=== PATIENT | female | born 2005 | race Caucasian/White ===

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

== ENCOUNTER 2025-02-15 19:38 | Emergency (ER) | payer BC, SELFPAY ==
--- OUTSIDE RECORDS SUMMARY | 2025-02-15 19:40 | XMS_ITS | Clinical Summary ---
Author Organization [facility] Address [address] [place] [address] Care Team Providers Care Recycler Forklift Driver Truck Driver Name Role Phone Clinician, Not Found MD Primary Care Provider Un available Source Comments You are receiving this document as you are listed as the primary care provider,follow-up provider, or the patient has been referred to you for consultation.This is in compliance with the Medicare and[facility] EHR Incentive Program,which states Providers who transition their patient to another setting of careor provider of care or refers their patient to another provider of care shouldprovide summary care record for each transition of care or referral. [facility] Allergies Active Allergy Reactions Criticality Noted Date Comments Latex Rash 08/27/2022 Sulfa Antibiotics Rash High 06/14/2024 Body rash Medications ALBUterol sulfate HFA 108 (90 Base) MCG/ACT inhaler Inhale 1-2 Puffs every 4 hours as needed. 05/28/19 25 Active cloNIDine (CATAPRES) 0.1 MG tablet Take 1 Tablet (0.1 mg) by mouth daily at bedtime. Active topiramate (TOPAMAX) 25 MG tablet Take 1 Tablet (25 mg) by mouth daily at bedtime. 06/28/19 25 Active VRAYLAR 1.5 MG capsule Take 1 Capsule (1.5 mg) by mouth daily at bedtime. 06/28/19 25 Active cholecalcifero l 25 MCG TABS Take 2 Tablets (2,000 Units) by mouth daily. 06/29/19 25 Active multivitamin (THERAGRAN) tablet Take 1 Tablet by mouth daily. 06/29/19 25 Active medroxyPROGEST ERone 150 MG/ML injection Inject 150 mg intramuscularly every 3 months. 02/17/20 24 025 Active Problems Problem Noted Date Diagnosed Date Vitamin D insufficiency 06/29/2024 Social anxiety disorder 06/21/2024 MDD (major depressive disord er), recurrent episode, moderate 06/21/2024 PTSD (post-traumatic stress disorder) 06/21/2024 Cannabis use disorder, moderate, dependence 05/25 Anorexia nervosa, binge-eating purging type, sev ere 06/14/2024 Abnormal weight loss 06/14/2024 Underweight 06/14/2024 Malnutrition 06/14/2024 BETH (generalized anxiety disorder) 06/14/2024 Immunizations Immunization Administration Dates Next Due Pfizer Bivalent 12+ 02/26/2022 Pfizer Monovalent 12+ 09/04/2021 Pfizer Monovalent 12+ Purple Top 10/28/2020,09/20 Social History Tobacco Use Types Packs/Day Years Used Date Smoking Tobacco: Former Cigarettes Smokeless Tobacco: Never Tobacco Cessation:Counseling Given: Not Answered Alcohol Use Standard Drinks/Week Comments Yes 0 (1 standard drink = 0.6 oz pur e alcohol) rare [facility] Utilities Answer Date Recorded In the past 12 months has [facility] [employer], gas, oil, or water [employer] threatened to shut off services in your home? Patient declined 06/28/2024 Humiliation, Afraid, Rape, and Kick questionnair e Answer Date Recorded Within the last year, have y ou been afraid of your partner or ex-partner? Patient declined 06/28/2024 Within the last year, have y ou been humiliated or emotionally abused in other ways by your partner or ex-partner? Patient declined 06/28/2024 Within the last year, have y ou been kicked, hit, slapped, or otherwise physically hurt by your partner or ex-partner? Patient declined 06/28/2024 Within the last year, have y ou been raped or forced to have any kind of sexual activity by your partner or ex-partner? Patient declined 06/28/2024 Hunger Vital Sign Answer Date Recorded Within the past 12 months, y ou worried that your food would run out before you got the money to buy more. Patient declined Within the past 12 months, t he food you bought just didn't last and you didn't have money to get more. Patient declined 10/2024 PRAPARE - Transportation Answer Date Re corded In the past 12 months, has l ack of transportation kept you from medical appointments or from getting medications? Patient declined 06/28/2024 In the past 12 months, has l ack of transportation kept you from meetings, work, or from getting things needed for daily living? Patient declined 06/28/2024 Comments No Sex and Gender Information Value Date Recorded Sex Assigned at Not on file Legal Sex Female 4:35 PM CDT Gender Identity Not on file Sexual Orientation Not on file Last Filed Vital Signs Vital Sign Reading Time Taken Comments Blood Pressure 112/81 06/29/2024 6:03 AM CLAY CARMAN Pulse 98 06/29/2024 6:03 AM CLAY CARMAN Temperature 37.1 C (98.8 F) 06/29/2024 6:00 AM CLAY CARMAN Respiratory Rate - - Oxygen Saturation - - Inhaled Oxygen Concentration - - Weight 43 kg (94 lb 12.8 oz) 06/28/2024 2:17 PM CLAY CARMAN Height 155.2 cm (5' 1.1) 06/28/2024 2:17 PM CLAY CARMAN Body Mass Index 17.85 06/28/2024 2:17 PM CLAY CARMAN Plan of Treatment Health Maintenance Due Date Last Done Comments Hep C Screening (Preventive Services) 2005 MenB Immunization Discussion 2005 HIV Screening (Preventive Services) 2021 Adult Preventive Visit 2023 Chlamydia 08/28/2023 08/27/2022, 08/27/2022 HepB Vaccine (1) 2024 COVID-19 Vaccine (5 - 2024-2 6 season) 2025 02/26/2022, 09/04/2021, 10/28/2020, Additional history exists Influenza Vaccine (#1) 2025 9, 02/08/2018, 03/25/2011, Additional history exists DTaP/Tdap/Td Vaccine (8 - Tdap) 11/01/2033 11/02/2023, 05/28/2015, 04/24/2009, Additional history exists Zoster/Shingles Vaccine (1 of 2) 2055 Pneumococcal Vaccine Completed 04/25/2006, 2005, 2005, Additional history exists Hib Vaccine Completed 08/24/2006, 06/2005, 2005, Additional history exists HepA Vaccine Completed 04/24/2009, 01/09/2007 IPV (Polio) Vaccine Completed 04/29/2010, 01/09/2007, 2005, Additional history exists MCV4 Vaccine Completed 02/26/2022, 05/28/2015 HPV Vaccine Completed 11/29/2022, 08/2017, 09/14/2016, Additional history exists HGB Completed 06/28/2024, 06/14/2024 Procedures Procedure Name Priority Date/Time Associated Diagnosis Comments COMPLETE BLOOD COUNT-W/DIFF STAT 06/28/2024 2:07 PM CLAY CARMAN Anorexia nervosa, binge-eating purging type, severe from Last 3 Months or Most Recently Relevant to Health Maintenance Results * Complete Blood Count-W/Diff (06/28/2024 2:07 PM CLAY CARMAN) Pathologist [facility] WBC 7.4 3.5 - 10.5 x10(9)/L 06/28/2024 6:41 PM CLAY CARMAN [facility] RBC 4.75 3.90 - 5.03 x10(12)/L 06/28/2024 6:41 PM CLAY CARMAN [facility] Hemoglobin 14.8 12.0 - 15.5 g/dL 06/28/2024 6:41 PM CLAY CARMAN [facility] HCT 43.8 34.9 - 44.5 % 06/28/2024 6:41 PM CLAY CARMAN [facility] MCV 92.2 80.0 - 100.0 fL 06/28/2024 6:41 PM CLAY CARMAN [facility] MCH 31.2 27.6 - 33.3 pg 06/28/2024 6:41 PM CLAY CARMAN [facility] MCHC 33.8 31.5 - 35.2 g/dL 06/28/2024 6:41 PM CLAY CARMAN [facility] RDW 13.2 11.9 - 15.5 % 06/28/2024 6:41 PM CLAY CARMAN [facility] Platelets 407 150 - 450 x10(9)/L 06/28/2024 6:41 PM CLAY CARMAN [facility] Automated NRBC 0 <=0 /100 WBC 06/28/2024 6:41 PM CLAY CARMAN [facility] Neutrophil Absolute 4.0 1.7 - 7.0 10(9)/L 06/28/2024 6:41 PM CLAY CARMAN [facility] Lymphocyte Absolute 2.6 1.0 - 4.8 10(9)/L 06/28/2024 6:41 PM CLAY CARMAN [facility] Monocyte Absolute 0.6 0.2 - 0.9 10(9)/L 06/28/2024 6:41 PM CLAY CARMAN [facility] Eosinophil Absolute 0.1 0.0 - 0.5 10(9)/L 06/28/2024 6:41 PM CLAY CARMAN [facility] Basophil Absolute 0.0 0.0 - 0.3 10(9)/L 06/28/2024 6:41 PM CLAY CARMAN [facility] Immature Granulocyte % 0.3 0.0 - 0.5 % 06/28/2024 6:41 PM CLAY CARMAN [facility] Blood Venipuncture / Unknown 06/28/2024 2:07 PM CLAY CARMAN 06/28/2024 3:33 PM CLAY CARMAN Nusrat Jarrett PA-C LAB_1 Final Result [facility] [address] [place] [address], [facility] from Last 3 Months or Most Recently Relevant to Health Maintenance Insurance [facility] [place] [phone] Advance Directives * Full Code (Latest Code Status on File) Date Activated Date Inactivated Comments 06/28/2024 3:38 PM 06/29/2024 3:25 PM Care Teams Recycler Forklift Driver Truck Driver Relationship Specialty Start Date End Date Clinician, Not Found, [place] [address] PCP - General 06/14/24
--- OUTSIDE RECORDS SUMMARY | 2025-02-15 19:40 | XMS_ITS | Clinical Summary ---
Author Organization [facility] Address [address] [place] [address] Care Team Providers Care Turret Punch Press Operator Name Role Phone Lisa Srinivasan MD Primary Care Prov ider Allergies Active Allergy Reactions Criticality Noted Date Comments Sulfamethoxazole-Trimethop rim Rash Medium 03/04/2018 Latex Rash 08/27/2022 Onion *Unknown High 08/12/2022 Sulfa (Sulfonamide Antibiotics) Rash High 03/15/2019 Jose Alberto daisha syndrome Medications albuterol HFA (PRO-AIR; VENTOLIN; PROVENTIL) 90 mcg/actuation inhalerIndication s:Breathing difficulty Inhale 1-2 Puffs by mouth every 4 hours if needed for Shortness of Breath 1st choice or Wheezing 2nd choice. 36 g 05/28/19 25 Active Vraylar 1.5 mg capsule Take 1.5 mg by mouth once daily. Active diazePAM 10 mg tablet TAKE 1 TABLET BY MOUTH DAILY NEEDED FOR SEVERE AGITATION 07/10/19 25 Active doxazosin (CARDURA) 1 mg tablet Take 1 mg by mouth at bedtime. 01/10/20 25 Active naproxen (NAPROSYN) 500 mg tabletIndications :IUD contraception Take 1 Tablet (500 mg) by mouth two times daily. 14 Tablet 01/26/20 25 Active Additional Information Patient not taking.Reported on 02/07/2025 lidocaine (XYLOCAINE) 2 % gelIndications:IU D contraception Apply topically to affected area(s) one time if needed (vaginal) for up to 1 dose. 5 mL 01/26/20 25 025 Discontin ued(*Med complete/ Regimen complete/ Level of care change) Hospital, Clinic, or Other Facility Administered Medication Ordered Dose Route Frequency Start Date End Date Status levonorgestrel (KYLEENA) 17.5 mcg/24 hr (5 yrs) 19.5 mg intrauterine device (IUD) 1 DeviceIndications:E ncounter for IUD insertion 1 Device IU Q 5 YEARS 02/05/2025 Active medroxyPROGESTERone acetate (contraceptive) (DEPO-PROVERA) injection 150 mgIndications:Uses contraception 150 mg IM Q 3 MONTHS (12 WEEKS) 12/13/2024 Discontinued Active Problems Problem Noted Date Diagnosed Date Drug overdose 12/12/2024 Vitamin D insufficiency 06/29/2024 Cannabis use disorder, moderate, dependence 05/25 Social anxiety disorder 06/21/2024 Abnormal weight loss 06/14/2024 Anorexia nervosa, binge-eating purging type, sev ere 06/14/2024 Asthma, unspecified asthma s everity, unspecified whether complicated, unspecified whether persistent 10/27/2023 History of asthma 02/10/2023 PTSD (post-traumatic stress disorder) 11/29/2022 Depression, major, single episode, moderate 11/20 Insomnia, idiopathic 11/29/2022 Migraine with aura and witho ut status migrainosus, not intractable 11/29/2022 Overview (11/29/2022): Aura, Uses Imitrex. Severe episode of recurrent major depressive disorder, without psychotic features 09/04/2021 Anxiety 09/04/2021 Attention deficit hyperactiv ity disorder (ADHD), predominantly inattentive type 02/02/2018 Resolved Problems Problem Noted Date Diagnosed Date Resolved Date Costal chondritis 10/01/2021 02/26/2022 Atypical pneumonia 10/01/2021 2 Encounters Date Type Department Care Team Description 02/11/2025 Nurse Triage [facility] [address] [place] [address] Lisa Srinivasan MD Abdominal Pain (Post IUD insertion) 02/07/2025 9:00 AM CDT Office Visit [facility] [address] [facility] [place] [address] Isi Freeman MD Abdominal Pain 02/07/2025 Travel 02/05/2025 7:45 AM CDT Procedure Only [facility] [address] [place] [address] Lsia Srinivasan MD IUD (IUD insertion ) 02/05/2025 Travel 01/30/2025 Telephone [facility] [address] [place] [address] Lisa Srinivasan MD Prior Authorization (lidocaine (XYLOCAINE) 2 % gel (Lidocaine HCl Urethral/Mucosal 2% syringes) Denied) 01/25/2025 1:25 PM CDT Office Visit [facility] [address] [place] [address] Lisa Srinivasan MD Medication Management ( control - Was on Depo, would like discuss IUD ) 01/25/2025 Travel 12/12/2024 8:35 AM CDT Office Visit [facility] [address] [place] [address] Lisa Srinivasan MD Well Child (19 year old ) 12/12/2024 Travel from Last 3 Months Immunizations Immunization Administration Dates Next Due AMB Influenza, IIV4 PF (=>6 mos Flulaval,Fluzone Fluarix)(Flu Clinic Only) 04/03/2019 COVID-19 vaccine (Pfizer-Bio NTech 30mcg/0.3mL) 12YO+ BIVALENT PF, MDV 02/26/2022 COVID-19 vaccine (Pfizer-Bio NTech 30mcg/0.3mL) 12YO+ JAMAL-SUCROSE PF, MDV 09/04/2021 COVID-19 vaccine (Pfizer-Bio NTech 30mcg/0.3mL) PF, MDV 10/28/2020,10/07/2020 DTaP 04/24/2009, 7,2005,08/24,2005 HPV 9 (Gardasil 9) 11/29/2022, 8,09/14/2016,05/12 Hepatitis A (Peds) 04/24/2009,01/09/2007 Hepatitis B (Peds) 02/18/2006,2005, 005 Hib Conjugate, Unspecified 08/24/2006,,2005,06/25 Inactivated Polio Vaccine 04/29/2010,,2005,06/25 Influenza, IIV4 02/08/2018, 1,03/02/2010,03/04,04/07/2007,04/25/2006,02/18/2006 MENINGOCOCCAL VACCINE 2 VIAL 2MO-55YO (MENVEO) 02/26/2022 MMR 04/24/2009,08/24/2006 Meningococcal Vaccine (Menactra) 05/28/2015 Pneumococcal conj 13-Valent (Prevnar 13) 04/25/2006,2005,2005,06/25 Tdap 11/02/2023,05/28/2015 Varicella Vaccine 04/29/2010,08/24/2006 Family History Medical History Relation Name Comments Brain Aneurysm Maternal Grandmother Arthritis Mother Depression Mother Lung cancer Paternal Grandmother smoker Anxiety disorder Sister Autism spectrum disorder Sister Depression Sister Relation Name Status Comments Father Alive Maternal Grandfather Alive Maternal Grandmother Mother Alive Paternal Grandfather Alive Paternal Grandmother Sister Social History Tobacco Use Types Packs/Day Years Used Date Smoking Tobacco: Former Cigarettes Smokeless Tobacco: Never Tobacco Cessation:Counseling Given: Yes Comments:no exposure Alcohol Use Standard Drinks/Week Comments Never 0 (1 standard drink = 0.6 oz pur e alcohol) PHQ-2 Answer Date Recorded PHQ-2 TOTAL SCORE 2 12/12/2024 Social Connections Answer Date Recorded Do you often feel lonely or isolated from those around you? 0 11/06/2024 Financial Resource Strain Answer Date R ecorded Difficulty of Paying Living Expenses 3 11/06/2024 Difficulty of Paying Living Expenses Not on file 11/06/2024 Food Insecurity Answer Date Recorded Do you worry your food will run out before you are able to buy more? 1 11/06/2024 Transportation Needs Answer Date Record ed Does lack of transportation keep you from medica l appointments? 1 11/06/2024 Does lack of transportation keep you from work, meetings or getting things that you need? 1 11/06/2024 Housing Stability Answer Date Recorded What is your housing situation today? 1 11/06/2024 Utilities Answer Date Recorded Do you have trouble paying f or utilities (for example, heat, electricity, water, phone)? 1 11/06/2024 Comments No Sex and Gender Information Value Date Recorded Sex Assigned at Not on file Legal Sex Female 7:17 AM MECHANICAL CAR CHECKER Gender Identity Not on file Sexual Orientation Not on file Obstetrics History Para Term AB IAB SAB Ectopic Multiple Livin g Live Births 0 0 0 0 0 0 0 0 0 0 0 Last Filed Vital Signs Vital Sign Reading Time Taken Comments Blood Pressure 112/65 02/07/2025 9:31 AM CDT Pulse 74 02/07/2025 9:28 AM CDT Temperature 36.7 C (98.1 F) 02/07/2025 9:31 AM CDT Respiratory Rate 18 02/07/2025 9:31 AM CDT Oxygen Saturation 99% 02/07/2025 9:31 AM CDT Inhaled Oxygen Concentration - - Weight 70.8 kg (156 lb) 12/12/2024 8:41 AM CDT Height 154.9 cm (5' 1) 12/12/2024 8:41 AM CDT Body Mass Index 29.48 12/12/2024 8:41 AM CDT Plan of Treatment Health Maintenance Due Date Last Done Comments Hepatitis C screening for ag e 18-79 2023 08/27/2022 COVID-19 vaccine series ( season) 2025 02/26/2022, 09/04/2021, 10/28/2020, Additional history exists Influenza Vaccine (#1) 2025 9, 02/08/2018, 03/25/2011, Additional history exists BMI (ht and wt on same day) for age 18+ 12/12/2025 12/12/2024, 09/06/2024, 03/13/2024, Additional history exists Chlamydia for age 16-24 12/12/2025 12/13/19 25, 08/27/2022, 09/04/2021 Depression screening for age 12+ 12/12/2025 12/12/2024, 12/02/2023, 12/02/2022, Additional history exists Well Child Check for age 3-20 12/12/2025, 12/02/2023, 11/29/2022, Additional history exists Tetanus booster 11/01/2033 11/02/2023, 05/28/2015 RSV vaccine for adults or (1 - 1-dose 75+ series) 2080 Hepatitis B series for 19+ Completed 02/18, 2005, 2005 Pneumococcal series for age 6-49 Completed 04/25/2006, 2005, 2005, Additional history exists Meningococcal series for age 11-21 Completed 2021, 05/28/2015 HIV for age 15-65 Completed 08/27/2022, 09/04/2021 HPV series for age 9-45 Completed 11/30/19, 05/26/2017, 09/14/2016, Additional history exists Procedures Procedure Name Priority Date/Time Associated Diagnosis Comments URINE POCT Routine 02/05/2025 7:54 AM CDT Encounter for IUD insertion TRICHOMONAS, BIANCA, AND BACTERIAL VAGINOSIS BY JUDI Routine 12/12/2024 9:05 AM CDT Screen for STD (sexually transmitted disease) GC CHLAMYDIA TRACH PROBE Routine 12/12/2024 9:05 AM CDT Screen for STD (sexually transmitted disease) LC HIV-1/O/2, 4TH GENERATION Routine 08/27/2022 11:35 AM CDT Routine screening for STI (sexually transmitted infection) LC HCV ANTIBODY RFX TO QUANT PCR Routine 08/27/2022 11:35 AM CDT Routine screening for STI (sexually transmitted infection) from Last 3 Months or Most Recently Relevant to Health Maintenance Results * POCT Urine (02/05/2025 7:54 AM CDT) POC HCG URINE NEGATIVE NEGATIVE 02/05/2025 8:02 AM CDT [facility] Urine URINE SPECIMEN / Unknown Non-Blood / Unknown 02/05/2025 7:54 AM CDT 02/05/2025 7:54 AM CDT Lisa Srinivasan MD URINE Fi nal Result [facility] [address] [address], [place] [phone] [address], [place] [phone] * (ABNORMAL) TRICHOMONAS, BIANCA, AND BACTERIAL VAGINOSIS BY JUDI (12/12/2024 9:05 AM CDT) BIANCA SPECIES Negative Negative 7:41 PM CDT [facility] BIANCA GLABRATA Negative Negative 12/12/2024 7:41 PM CDT [facility] TRICHOMONAS VVA Negative Negative 7:41 PM CDT [facility] BACTERIAL VAGINOSIS Positive(A) Negative 12/12/2024 7:41 PM CDT [facility] Other VAGINAL SWAB / Unknown Non-Blood / Unknown 12/12/2024 9:05 AM CDT 12/12/2024 9:32 AM CDT Lisa Srinivasan MD MICROBIOLOGY Fi nal Result [facility] [address] [place] [address], [place] * GC & CHLAMYDIA DNA PCR [[id number]] (12/12/2024 9:05 AM CDT) CHLAMYDIA PROBE Negative 8:18 PM CDT [facility] N GONORRHOEAE PROBE Negative 12/12/2024 8:18 PM CDT [facility] Other VAGINAL SWAB / Unknown Non-Blood / Unknown 12/12/2024 9:05 AM CDT 12/12/2024 9:32 AM CDT Lisa Srinivasan MD MICROBIOLOGY Fi nal Result [facility] [address] [place] [address], [place] * LC HCV ANTIBODY RFX TO QUANT PCR (08/27/2022 11:35 AM CDT) Pathologist [facility] HCV Ab Non Reactive Non Reactive 08/31/2022 1:09 PM CDT [facility] ([facility]) Blood BLOOD SPECIMEN / Unknown Venipuncture / Unknown 08/27/2022 11:35 AM CDT 08/27/2022 11:37 AM CDT Narrative [facility] ([facility]) - 08/31/2022 1:09 PM CDT Performed at: [address] [place] [id number] Flat Locker: Nawaf Vela MD, Phone: [phone] Lacie Mora MD LABORATORY Fin al Result [facility] ([facility]) [address] [place] [address], [place] * LC HIV-1/O/2, 4TH GENERATION (08/27/2022 11:35 AM CDT) Pathologist [facility] HIV Scr 4th Gen Non Reactive Non Reactive 08/31/2022 12:08 PM CDT [facility] ([facility]) Comment: HIV Negative HIV-1/HIV-2 antibodies and HIV-1 p24 antigen were NOT detected. There is no laboratory evidence of HIV infection. Blood BLOOD SPECIMEN / Unknown Venipuncture / Unknown 08/27/2022 11:35 AM CDT 08/27/2022 11:37 AM CDT Narrative [facility] ([facility]) - 08/31/2022 12:08 PM CDT Performed at: - [facility] [address] [place] [id number] Flat Locker: Nawaf Vela MD, Phone: [phone] us Lacie Mora MD LABORATORY Fin al Result [facility] ([facility]) [facility] [place] [address], from Last 3 Months or Most Recently Relevant to Health Maintenance Insurance [employer] Care Teams Turret Punch Press Operator Relationship Specialty Start Date End Date Lisa Srinivasan MD [address] [place] [address] PCP - General Family Practice 01/25/25
--- OUTSIDE RECORDS SUMMARY | 2025-02-15 19:40 | XMS_ITS | Clinical Summary ---
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 Medications cloNIDine (CATAPRES) 0.1 MG tablet Take 0.1 mg by mouth At Bedtime Active DULoxetine (CYMBALTA) 30 MG capsuleIndications :Recurrent major depressive disorder, remission status unspecified Take 1 capsule (30 mg) by mouth daily 30 capsule 0 Active hydrOXYzine (ATARAX) 25 MG tabletIndications: Anxiety Take 1 tablet (25 mg) by mouth 3 times daily as needed for anxiety 60 tablet 0 Active Vitamin D3 (CHOLECALCIFEROL) 25 mcg (1000 units) tabletIndications: Vitamin D insufficiency Take 2 tablets (50 mcg) by mouth daily 0 Active Active Problems Problem Noted Date Diagnosed Date Suicidal ideation 03/28/2020 Depression Anxiety Social History Tobacco Use Types Packs/Day Years Used Date Smoking Tobacco: Never Assessed Adolescent Education Answer Date Record ed Getting School Help Needed Not on file 02/11 Comments Unknown Sex and Gender Information Value Date Recorded Sex Assigned at Not on file Legal Sex Female 2:37 PM CDT Gender Identity Not on file Sexual Orientation Not on file Last Filed Vital Signs Vital Sign Reading Time Taken Comments Blood Pressure 105/63 04/01/2022 7:03 PM CINETECHNICIAN Pulse 77 04/01/2022 7:03 PM CINETECHNICIAN Temperature 36.1 C (96.9 F) 04/01/2022 7:03 PM CINETECHNICIAN Respiratory Rate 16 04/01/2022 7:03 PM CINETECHNICIAN Oxygen Saturation 100% 04/01/2022 7:03 PM CINETECHNICIAN Inhaled Oxygen Concentration - - Weight 49 kg (108 lb) 04/01/2022 7:03 PM CINETECHNICIAN Height 156.2 cm (5' 1.5) 04/01/2022 7:03 PM CINETECHNICIAN Body Mass Index 20.08 04/01/2022 7:03 PM CINETECHNICIAN Body Mass Index Percentile 39.34% 04/01/2022 7:0 3 PM CINETECHNICIAN Growth Chart: CDC (Girls, 2- 20 Years) Plan of Treatment Health Maintenance Due Date Last Done Comments ADVANCE CARE PLANNING 2005 ANNUAL REVIEW OF HM ORDERS 2005 CHLAMYDIA SCREENING 2005 HPV VACCINE (3 - 2-dose series) 12/07/2016 7, 05/12/2016 HIV SCREENING 2020 MENINGITIS B VACCINE (1 of 2 - Standard) 2021 YEARLY PREVENTIVE VISIT 09/04/2022 09/04/2021, 10/02 HEPATITIS C SCREENING 2023 PHQ-2 (once per calendar year) 2024 COVID-19 VACCINE (5 - 2024-2 6 season) 2025 02/26/2022, 09/04/2021, 10/28/2020, Additional history exists INFLUENZA VACCINE (#1) 2025 9, 02/08/2018, 03/25/2011, Additional history exists DTAP/TDAP/TD VACCINE (7 - Td or Tdap) 05/28/2025 05/28/2015, 04/24/2009, 01/09/2007, Additional history exists ZOSTER VACCINE (1 of 2) 2055 HEPATITIS B VACCINE Completed 02/18/2006, 2005, 2005 PNEUMOCOCCAL VACCINE: PEDIAT RICS (0 to 5 YEARS) AND AT-RISK PATIENTS (6 to 49 YEARS) Completed 04/25/2006, 2005, 2005, Additional history exists HIB VACCINE Completed 08/24/2006, 06/2005, 2005, Additional history exists IPV VACCINE Completed 04/29/2010, 12/22, 2005, Additional history exists VARICELLA VACCINE Completed 04/29/2010, 08/24/2006 MENINGITIS VACCINE Completed 02/26/2022, 05/28/2015 Insurance BCBS OUT OF STATE BCBS OUT OF STATE BC OUT OF STATE Advance Directives For more information, please contact: [phone] * Full Code (Latest Code Status on File) Date Activated Date Inactivated Comments 03/28/2020 3:59 AM 04/02/2020 7:40 PM All basic a nd advanced life-sustaining interventions are performed as appropriate Question Answer Comments Code status determined by: Discussion with patie nt/ legal decision maker Care Teams Rn Urology Relationship Specialty Start Date End Date Lacie Mora MD PCP - General Pediatrics 03/15/19
[2025-02-15 19:46] VITALS: BP 109/64; PULSE 72; RESP 18; TEMP 37.1; O2SAT 100; BMI 22.3
[2025-02-15 20:06] LABS: Appearance Urine Clear (Clear)
--- NOTE | 2025-02-15 20:08 | ED.ABDPAIN ---
HPI - Abdominal Pain General Time Seen by Provider: 20:08 Date Seen: 02/15/25 Chief Complaint: Abdominal Pain Stated Complaint: Post IUD placement pain Time Seen by Provider: 02/15/25 20:08 Source: patient Mode of arrival: ambulatory History of Present Illness HPI narrative: Christian is a 19-year-old female who presents the emergency department for evaluation of abdominal pain. Patient reports abdominal pain secondary to IUD placement on 02/05/2025. Patient reports lower abdominal/pelvic pain that has been constant with intermittent waves of intensity since insertion date. Patient reports pain is in the middle and left side greater than right. Patient denies any fever, chills, chest pain, shortness of breath, nausea, vomiting, back pain. Denies any vaginal bleeding, discharge. Patient reports urinary frequency but denies any dysuria, hematuria. Patient states that she has been seen a few times in Urgent Care for the pain. Patient states today when she was taking a shower she felt the strings and was worried that her IUD may be displaced. Patient has taken ibuprofen on occasion to help with the pain. No medications today prior to arrival. No other complaints. Per chart review patient was seen on 02/11/2025 at urgent care for similar symptoms, thought maybe due to IUD insertion and/or ovulation. Recommend ultrasound and outpatient follow-up with [facility]. Related Data Home Medications ?Medication ?Instructions ?Recorded ?Confirmed cariprazine 1.5 mg capsule 1.5 mg PO DAILY 11/02/24 02/15/25 (Vraylar) doxazosin 2 mg tablet 2 mg PO QDAY 02/11/25 02/15/25 diazepam 2 mg tablet (Valium) 2 mg PO QHS PRN 02/15/25 02/15/25 Allergies Allergy/AdvReac Type Severity Reaction Status Date / Time Sulfa (Sulfonamide Allergy Severe Hives Verified 02/11/25 17:46 Antibiotics) Latex, Natural Rubber Allergy Intermediate itchy Verified 02/11/25 17:46 onion Allergy Intermediate itchy mouth Uncoded 02/11/25 17:46 Review of Systems Narrative Past medical history, past surgical history, medications, allergies, family history, and social history were reviewed with the patient. No additional pertinent items. A medically appropriate review of systems was performed with pertinent positives and negatives noted in HPI, all other systems negative. PFSH PFS Medical History Neck pain ?M54.2 - Cervicalgia (ICD-10) Migraine headache ?G43.909 - Migraine, unspecified, not intractable, without status migrainosus (ICD-10) Head injury ?S09.90XA - Unspecified injury of head, initial encounter (ICD-10) Sinusitis ?J32.9 - Chronic sinusitis, unspecified (ICD-10) Social History Smoking Status: Current some day smoker Do you use any of these nicotine containing products: Vaping Products Second hand tobacco smoke exposure: No How often do you have a drink containing alcohol: monthly or less How many standard drinks containing alcohol do you have on a typical day: 3 or 4 How often do you have six or more drinks on one occasion: Never AUDIT-C Alcohol total score: 2 Non-prescribed substance use: marijuana (any form) service: No Exam Narrative: Exam Narrative: General: Afebrile, no acute distress HEENT: Normocephalic, atraumatic, conjunctiva normal. MMM Neck: non-tender, supple Cardio: regular rate. regular rhythm Resp: Normal work of breathing, no respiratory distress, lungs clear bilaterally, no wheezing, rhonchi, rales Chest/Back: no visual signs of trauma, no midline tenderness, no CVA tenderness Abdomen: soft, non distension, no tenderness, no peritoneal signs Neuro: alert and fully oriented. CN II-XII grossly intact. Grossly normal strength and sensation in all extremities. MSK: no deformities. Normal range of motion Integumentary/Skin: no rash visualized, normal color Psych: normal affect, normal behavior Const: Vital Signs, click to edit/add: Vital Signs - 24 hr 02/15/25 19:46 Temperature 98.8 F Pulse Rate [Pulse Oximeter] 72 Respiratory Rate 18 Blood Pressure [Ri ght Upper Arm] 109/64 Pulse Oximetry 100 Oxygen Delivery Me thod Room Air Course Vital Signs Vital signs: Initial Vital Signs Temperature 98.8 F 02/15/25 19:46 Temperature Source Temporal Artery Scan 02/15/25 19:46 Pulse Rate 72 02/15/25 19:46 Respiratory Rate 18 02/15/25 19:46 Blood Pressure 109/64 02/15/25 19:46 Blood Pressure Mean 79 02/15/25 19:46 Pulse Oximetry 100 02/15/25 19:46 Oxygen Delivery Method Room Air 02/15/25 19:46 Vital Signs Temperature 98.8 F 02/15/25 19:46 Pulse Rate 72 02/15/25 19:46 Respiratory Rate 18 02/15/25 19:46 Blood Pressure 109/64 02/15/25 19:46 Pulse Oximetry 100 02/15/25 19:46 Oxygen Delivery Method Room Air 02/15/25 19:46 Temperature 98.8 F 02/15/25 19:46 Pulse Rate 72 02/15/25 19:46 Respiratory Rate 18 02/15/25 19:46 Blood Pressure 109/64 02/15/25 19:46 Pulse Oximetry 100 02/15/25 19:46 Oxygen Delivery Method Room Air 02/15/25 19:46 Medications Administered Medications: Discontinued Medications Generic Name Dose Route Start Last Admin Trade Name Donavan PRN Reason Stop Dose Admin Ibuprofen 600 mg 02/15/25 20:22 02/15/25 20:49 Ibuprofen 200 Mg Tablet PO 02/15/25 20:23 600 mg ONCE ONE Administration MDM - Abdominal Pain MDM Narrative Medical decision making narrative: Christian is a 19-year-old female who presents the emergency department for evaluation of abdominal pain. Upon arrival patient is nontoxic appearing, afebrile, no distress. Patient hemodynamically stable, vital signs within normal limits. Abdomen is soft, nontender, nondistended, no rebound, no guarding, no peritoneal signs. Differential diagnosis includes but is not limited to cystitis versus versus pain secondary to IUD placement versus ovarian cyst versus torsion among others. Upon arrival patient was treated with ibuprofen for pain. Plan for urinalysis, pelvic ultrasound. I discussed in consider laboratory testing the patient however after shared decision-making decision was made to hold off on laboratory testing at this time as they likely would not climate change risk assessor. Urinalysis with no evidence of acute infection, negative for blood. Negative for . I personally reviewed and interpreted pelvic US which demonstrates IUD in place, no evidence of ovarian torsion, there is a simple appearing 3.6 cm left ovarian cyst. I discussed results with patient. Discussed pain, related to cyst however most likely suspect secondary to IUD that was recently placed. Encourage her to follow-up closely with her OBGYN provider for follow-up evaluation. Recommend Tylenol, ibuprofen as needed for pain. Strict return precautions discussed. Patient understands and agrees with plan. Medical Records Attestation: I reviewed the patient's medical records. Lab Data Attestation: I reviewed the patient's lab results. Labs: Lab Results 02/15/25 Range/Units 19:58 Urine Color Dark yellow (Yellow) Urine Appearance Clear (Clear) Urine pH 6.0 (5.0-8.5) Ur Specific [place] >= 1.030 (1.000-1.030) Urine Protein 1+ A (Negative) Urine Glucose (UA) Negative (Negative) Urine Ketones Trace A (Negative) Urine Blood Negative (Negative) Urine Nitrite Negative (Negative) Urine Bilirubin Negative (Negative) Urine Urobilinogen 0.2 (0.2-1.0) Ur Leukocyte Esterase Negative (Negative) Urine RBC 0-2 (0-2) Urine WBC 0-2 (0-5) Ur Squamous Epith Cells None (None-Few) Urine Bacteria None (None) Urine HCG, Qual Negative (Negative) Imaging Data US - abdomen: Attestation: I have reviewed the pertinent imaging results. Radiologist's impression: IMPRESSION: 1. IUD appears appropriately positioned. 2. No evidence of ovarian torsion. 3. Simple appearing 3.6 cm left ovarian cyst. This is likely physiologic and does not require follow-up. Discharge Plan Discharge Clinical Impression: Pelvic pain, IUD (intrauterine device) in place, Ovarian cyst Patient Disposition: Home, Self-Care Condition: Stable Additional Instructions: Please follow-up with your teamsite developer provider in the next few days for further evaluation and follow-up. Please call Tuesday morning to schedule a follow-up appointment. Please alternate taking Tylenol 1000 mg and ibuprofen 600 mg every 6 hours as needed for fever, pain. Please return to the emergency department if you develop any worsening symptoms. It was a pleasure taking care of you today. We hope you feel better soon. Prescriptions: No Action Vraylar 1.5 mg capsule 1.5 mg PO DAILY doxazosin 2 mg tablet 2 mg PO QDAY diazepam [Valium] 2 mg tablet 2 mg PO QHS PRN Follow Up/Referrals: Savana Humphrey MD [Staff Physician, Obstetrics] Stand Alone Forms: [facility] Info Instructions
--- NOTE | 2025-02-15 20:22 | CRLHL7_ITS ---
For Patients: As a result of the Century Cures Act, medical imaging exams and procedure reports are released immediately into your electronic medical record. You may view this report before your referring provider. If you have questions, please contact your health care provider. INDICATION: Pelvic pain, mostly left-sided, recent IUD placement. COMPARISON: CT of the abdomen and pelvis 03/18/2022. TECHNIQUE: Ultrasound pelvis transabdominal and transvaginal for better assessment or to better visualize the endometrium. Real time sonographic images with color Doppler and spectral analysis of the ovaries were obtained. FINDINGS: Sonographic images demonstrate a normal size and smooth outer contour of the uterus. The uterus is anteverted in position. The uterus measures 9.1 cm in length by 3.1 cm in AP dimension by 4.9 cm in transverse dimension. The myometrium has uniform echotexture. The endometrial lining measures 5 mm in composite thickness. IUD appears appropriately positioned. Small amount of anechoic fluid in the endocervical canal is likely physiologic. The right ovary measures 3.5 x 1.2 x 1.6 cm. Arterial and venous waveforms detected. Unremarkable sonographic appearance. The left ovary measures 4.7 x 2.4 x 2.9 cm. Arterial and venous waveforms detected. There is a 3.6 x 2.1 x 2.6 cm anechoic cyst in the left ovary with no internal vascularity. No free fluid in the pelvic cul-de-sac. IMPRESSION: 1. IUD appears appropriately positioned. 2. No evidence of ovarian torsion. 3. Simple appearing 3.6 cm left ovarian cyst. This is likely physiologic and does not require follow-up. Dictated by Nora Dobson MD @ 02/15/2025 10:06:04 PM (Electronically Signed)
[2025-02-15] MEDS: IBUPROFEN 200 MG TABLET 600 MG PO (20:49)
[2025-02-15 21:04] LABS: Ur HCG Qualitative* Negative (Negative)
== END 2025-02-15 22:37 | disposition home or self-care (01) ==
PROVIDERS: Emergency Provider Emergency Medicine; PCP Student in an Organized Health Care Education/Training Program
DX: N83.202 Unspecified ovarian cyst, left side (principal); R10.2 Pelvic and perineal pain; Z97.5 Presence of (intrauterine) contraceptive device
CPT/HCPCS: 76830; 76856; 81001; 81003; 81025; 93976; 99284; 99285; A9270